=== PATIENT | male | born 1955 | race Caucasian/White ===

== ENCOUNTER 2018-07-15 00:24 | Inpatient (IN) | payer OTHER ==
[~2018-07-15] VITALS: Ht 172.7 cm; Wt 75.5 kg
[2018-07-15] VITALS (8 sets, daily range): BP systolic 109–139; BP diastolic 63–93
[2018-07-15] MEDS ORDERED: ONDANSETRON HCL INJ 2 MG/ML VIAL IV STA (00:34)
[2018-07-15] MEDS ORDERED: PANTOPRAZOLE 40 MG 10ML VIAL IV STA (00:34)
[2018-07-15] MEDS ORDERED: ASPIRIN 81 MG CHEW TAB PO ONE (00:45)
[2018-07-15] MEDS ORDERED: DIATRIZOATE MEGL/DIATRIZOA SOD 30 ML BTL PO ONE (00:49)
[2018-07-15 01:12] LABS: EOSINOPHILS # (AUTO) 0.1 (0.0-0.4); EOSINOPHILS % 1.2 % (0.0-6.0); HEMATOCRIT 29.6 % (38.2-49.6); HEMOGLOBIN 10.4 g/dL (14.0-18.0); LYMPHOCYTES # (AUTO) 0.5 (1.0-3.2); LYMPHOCYTES % 9.6 % (18.0-39.1); MEAN CORPUSCULAR HEMOGLOBIN 38.7 pg (28-32); MEAN CORPUSCULAR HGB CONC 35.1 g/dL (31-35); MONOCYTES # (AUTO) 0.3 (0.2-0.8); MONOCYTES % 5.1 % (4.4-11.3); NEUTROPHILS # (AUTO) 4.3 (2.1-6.9); NEUTROPHILS % 83.7 % (38.7-80.0); PLATELET COUNT 132 x10e3/uL (140-360); RED BLOOD COUNT 2.69 x10e6/uL (4.3-5.7); RED CELL DISTRIBUTION WIDTH 13.5 % (11.7-14.4)
[2018-07-15 01:28] LABS: CREATINE KINASE 67 IU/L (30-200)
[2018-07-15 01:31] LABS: ALANINE AMINOTRANSFERASE 16 IU/L (0-55); ALBUMIN/GLOBULIN RATIO 1.2 (0.8-2.0); ALKALINE PHOSPHATASE 57 IU/L (40-150); AMYLASE 77 U/L (25-125); ANION GAP 15.4 mmol/L (8-16); BLOOD UREA NITROGEN 13 mg/dL (7-26); BUN/CREATININE RATIO 17 (6-25); CALCIUM 9.4 mg/dL (8.4-10.2); CARBON DIOXIDE 19 mmol/L (22-29); CHLORIDE 102 mmol/L (98-107); CREATININE, SERUM 0.75 mg/dL (0.72-1.25); EST GLOMERULAR FILTRATION RATE > 60 ML/MIN (60-); GLUCOSE 142 mg/dL (74-118); LIPASE 17 U/L (8-78); POTASSIUM 3.4 mmol/L (3.5-5.1); SODIUM 133 mmol/L (136-145)
--- NOTE | 2018-07-15 02:37 | Diagnostic Imaging Report ---
EXAM: CT ABDOMEN AND PELVIS with IV CONTRAST DATE: 07/15/2018 12:34 AM Time stamp on Exam: 0202 hours INDICATION: Left-sided abdominal pain, vomiting COMPARISON: None TECHNIQUE: The abdomen and pelvis were scanned using a multidetector helical scanner. Coronal and sagittal reformations were obtained. Dose modulation, iterative reconstruction, and/or weight based adjustment of the mA/kV was utilized to reduce the radiation dose to as low as reasonably achievable. Routine protocol performed. IV Contrast: 100 cc Isovue-370 Oral Contrast: Gastrografin FINDINGS: LOWER THORAX: No consolidations LIVER: No masses BILIARY: The gallbladder is unremarkable. No ductal dilation. SPLEEN: No masses PANCREAS: The pancreas appears edematous. Fat stranding around the posterior superior aspect of the splenic body and tail ADRENALS: Mild bilateral adrenal gland hyperplasia. KIDNEYS: Symmetric perfusion. No enhancing masses. No hydronephrosis. Simple cyst measuring 2.8 cm superior pole of the right kidney. GI TRACT: No distention, wall thickening or evidence of obstruction. Colonic diverticulosis without CT findings of acute diverticulitis. Normal appendix. 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 PERITONEUM/RETROPERITONEUM: No free air or fluid LYMPH NODES: No lymphadenopathy REPRODUCTIVE ORGANS: Unremarkable BLADDER: Unremarkable SOFT TISSUES: Unremarkable BONES: No suspicious bone lesions. IMPRESSION: Left upper quadrant retroperitoneal fat stranding and prominent pancreas suggests acute pancreatitis. No abnormal fluid collections. Signed by: Dr. Renetta Landrum M.D. on 07/15/2018 2:33 AM
[2018-07-15] MEDS ORDERED: HYDROMORPHONE 1MG/1ML INJ IV STA (02:47)
[2018-07-15] MEDS ORDERED: SODIUM CHLORIDE 0.9% 1000ML 1,000 ML IV ONE (03:00)
[2018-07-15] MEDS ORDERED: HYDROMORPHONE 2MG/ML 2 MG/ML ML IV PRN ×3 (03:00→10:00)
[2018-07-15] MEDS ORDERED: HYDROMORPHONE 2MG/ML 2 MG/ML ML ONE (03:01)
[2018-07-15] MEDS ORDERED: FOLIC ACID1 MG PO (03:08)
[2018-07-15 04:05] LABS: CLARITY,URINE CLEAR (CLEAR); COLOR,URINE YELLOW (YELLOW); LEUKOCYTE ESTERASE ,URINE NEGATIVE (NEGATIVE); NITRITE,URINE NEGATIVE (NEGATIVE); PROTEIN,URINE DIPSTICK NEGATIVE (NEGATIVE)
[2018-07-15 04:06] LABS: BILIRUBIN,URINE NEGATIVE (NEGATIVE); KETONES,URINE 1+ (NEGATIVE); URINE UROBILINOGEN 0.2 mg/dL (0.2 - 1)
[2018-07-15 04:15] LABS: BACTERIA,URINE RARE /HPF; EPITHELIAL CELLS,URINE RARE /LPF; RBC,URINE 0-5 /HPF (0-5); WBC,URINE (MAN) 0-5 /HPF (0-5)
[2018-07-15] MEDS: SODIUM CHLORIDE 0.9% 1000ML 1,000 ML IV SCH ×4 (05:20→21:50)
[2018-07-15] MEDS: ONDANSETRON HCL INJ 2 MG/ML VIAL IV PRN ×4 (06:05→18:30)
[2018-07-15] MEDS ORDERED: SODIUM CHLORIDE 0.9% 50ML 50 ML ONE (06:20)
[2018-07-15] MEDS ORDERED: IOPAMIDOL 370 MG/ML 200 ML INFUS..BTL INJ ONE (06:21)
[2018-07-15] MEDS ORDERED: B-12500 MCG (07:59)
[2018-07-15] MEDS ORDERED: HYDRALAZINE HCL 20 MG/ML VIAL IV PRN (08:15)
[2018-07-15] MEDS ORDERED: ACETAMINOPHEN 325 MG TAB PO PRN (08:15)
[2018-07-15] MEDS: PANTOPRAZOLE 40 MG 10ML VIAL IV SCH (08:32)
[2018-07-15] MEDS: CYANOCOBALAMIN 1,000 MCG TAB PO SCH (08:32)
[2018-07-15] MEDS: FOLIC ACID 1 MG TAB PO SCH (08:32)
[2018-07-15] MEDS: HYDROCODONE/APAP 10MG-325MG TAB PO PRN ×3 (08:33→21:51)
[2018-07-15] MEDS ORDERED: NON-FORMULARY MEDICATION (Cyanocobalamin (Vitamin B-12) (B-12) 1,000 MCG) PO SCH (09:00)
[2018-07-15] MEDS: HYDROMORPHONE 2MG/ML 2 MG/ML ML IV PRN ×4 (10:07→22:30)
[2018-07-16] VITALS (7 sets, daily range): BP systolic 106–132; BP diastolic 64–83
[2018-07-16] MEDS: SODIUM CHLORIDE 0.9% 1000ML 1,000 ML IV SCH ×6 (01:39→21:34)
[2018-07-16] MEDS: HYDROMORPHONE 2MG/ML 2 MG/ML ML IV PRN ×5 (02:17→20:22)
[2018-07-16 05:20] LABS: BASOPHILS % 0.2 % (0.0-1.0); EOSINOPHILS # (AUTO) 0.1 (0.0-0.4); EOSINOPHILS % 2.4 % (0.0-6.0); HEMATOCRIT 27.1 % (38.2-49.6); HEMOGLOBIN 9.1 g/dL (14.0-18.0); LYMPHOCYTES # (AUTO) 1.3 (1.0-3.2); LYMPHOCYTES % 28.4 % (18.0-39.1); MEAN CORPUSCULAR HEMOGLOBIN 38.1 pg (28-32); MEAN CORPUSCULAR HGB CONC 33.6 g/dL (31-35); MEAN CORPUSCULAR VOLUME 113.4 fL (81-99); MONOCYTES # (AUTO) 0.4 (0.2-0.8); MONOCYTES % 8.1 % (4.4-11.3); NEUTROPHILS # (AUTO) 2.8 (2.1-6.9); NEUTROPHILS % 60.7 % (38.7-80.0); PLATELET COUNT 78 x10e3/uL (140-360); RED BLOOD COUNT 2.39 x10e6/uL (4.3-5.7); RED CELL DISTRIBUTION WIDTH 14.1 % (11.7-14.4)
[2018-07-16 05:40] LABS: ALANINE AMINOTRANSFERASE 12 IU/L (0-55); ALBUMIN 3.6 g/dL (3.5-5.0); ALBUMIN/GLOBULIN RATIO 1.3 (0.8-2.0); ALKALINE PHOSPHATASE 51 IU/L (40-150); AMYLASE 48 U/L (25-125); ANION GAP 12.4 mmol/L (8-16); BLOOD UREA NITROGEN 8 mg/dL (7-26); BUN/CREATININE RATIO 11 (6-25); CARBON DIOXIDE 25 mmol/L (22-29); CHLORIDE 104 mmol/L (98-107); CREATININE, SERUM 0.71 mg/dL (0.72-1.25); EST GLOMERULAR FILTRATION RATE > 60 ML/MIN (60-); GLUCOSE 104 mg/dL (74-118); LIPASE 7 U/L (8-78); POTASSIUM 4.4 mmol/L (3.5-5.1); SODIUM 137 mmol/L (136-145)
[2018-07-16] MEDS: FOLIC ACID 1 MG TAB PO SCH (09:00)
[2018-07-16] MEDS: CYANOCOBALAMIN 1,000 MCG TAB PO SCH (09:00)
[2018-07-16] MEDS: PANTOPRAZOLE 40 MG 10ML VIAL IV SCH (09:24)
[2018-07-16] MEDS: HYDROCODONE/APAP 10MG-325MG TAB PO PRN ×4 (09:25→21:34)
[2018-07-16] MEDS: ONDANSETRON HCL INJ 2 MG/ML VIAL IV PRN (16:18)
[2018-07-17] VITALS (7 sets, daily range): BP systolic 99–169; BP diastolic 69–90
[2018-07-17] MEDS: HYDROMORPHONE 2MG/ML 2 MG/ML ML IV PRN ×5 (00:46→21:14)
[2018-07-17] MEDS: SODIUM CHLORIDE 0.9% 1000ML 1,000 ML IV SCH ×6 (01:44→19:50)
[2018-07-17] MEDS: HYDROCODONE/APAP 10MG-325MG TAB PO PRN (02:15)
[2018-07-17] MEDS ORDERED: CITRATE OF MAGNESIA 300ML BOTTLE PO ONE (04:15)
[2018-07-17 05:13] LABS: EOSINOPHILS # (AUTO) 0.1 (0.0-0.4); EOSINOPHILS % 2.1 % (0.0-6.0); HEMATOCRIT 26.1 % (38.2-49.6); HEMOGLOBIN 8.8 g/dL (14.0-18.0); MEAN CORPUSCULAR HEMOGLOBIN 38.8 pg (28-32); MEAN CORPUSCULAR HGB CONC 33.7 g/dL (31-35); MONOCYTES # (AUTO) 0.3 (0.2-0.8); MONOCYTES % 8.4 % (4.4-11.3); NEUTROPHILS % 60.2 % (38.7-80.0); PLATELET COUNT 58 x10e3/uL (140-360); RED BLOOD COUNT 2.27 x10e6/uL (4.3-5.7); RED CELL DISTRIBUTION WIDTH 13.7 % (11.7-14.4)
[2018-07-17 05:32] LABS: ANION GAP 14.6 mmol/L (8-16); BLOOD UREA NITROGEN 6 mg/dL (7-26); BUN/CREATININE RATIO 9 (6-25); CALCIUM 8.9 mg/dL (8.4-10.2); CARBON DIOXIDE 21 mmol/L (22-29); CHLORIDE 107 mmol/L (98-107); CREATININE, SERUM 0.65 mg/dL (0.72-1.25); EST GLOMERULAR FILTRATION RATE > 60 ML/MIN (60-); GLUCOSE 93 mg/dL (74-118); MAGNESIUM 1.7 MG/DL (1.3-2.1); PHOSPHORUS 2.7 MG/DL (2.3-4.7); POTASSIUM 3.6 mmol/L (3.5-5.1); SODIUM 139 mmol/L (136-145)
[2018-07-17] MEDS: PANTOPRAZOLE 40 MG 10ML VIAL IV SCH (08:40)
[2018-07-17] MEDS: CYANOCOBALAMIN 1,000 MCG TAB PO SCH (09:00)
[2018-07-17] MEDS: FOLIC ACID 1 MG TAB PO SCH (09:00)
[2018-07-18] VITALS (7 sets, daily range): BP systolic 105–175; BP diastolic 59–88
[2018-07-18] MEDS ORDERED: MAGNESIUM HYDROXIDE 30 ML UDC PO ONE (00:30)
[2018-07-18] MEDS: MORPHINE SULFATE INJ 4 MG/ML INJ IV PRN ×5 (01:45→19:50)
[2018-07-18] MEDS: SODIUM CHLORIDE 0.9% 1000ML 1,000 ML IV SCH ×3 (02:23→18:35)
[2018-07-18] MEDS: HYDROCODONE/APAP 10MG-325MG TAB PO PRN ×4 (04:46→21:48)
[2018-07-18 05:07] LABS: EOSINOPHILS # (AUTO) 0.1 (0.0-0.4); EOSINOPHILS % 4.5 % (0.0-6.0); HEMATOCRIT 25.6 % (38.2-49.6); HEMOGLOBIN 8.7 g/dL (14.0-18.0); LYMPHOCYTES % 33.6 % (18.0-39.1); MEAN CORPUSCULAR HEMOGLOBIN 38.7 pg (28-32); MEAN CORPUSCULAR VOLUME 113.8 fL (81-99); MONOCYTES # (AUTO) 0.3 (0.2-0.8); MONOCYTES % 10.5 % (4.4-11.3); NEUTROPHILS # (AUTO) 1.5 (2.1-6.9); NEUTROPHILS % 51.1 % (38.7-80.0); RED BLOOD COUNT 2.25 x10e6/uL (4.3-5.7); RED CELL DISTRIBUTION WIDTH 13.5 % (11.7-14.4)
[2018-07-18 05:12] LABS: PLATELET COUNT 43 x10e3/uL (140-360)
[2018-07-18 05:29] LABS: ALANINE AMINOTRANSFERASE 17 IU/L (0-55); ALBUMIN 3.4 g/dL (3.5-5.0); ALBUMIN/GLOBULIN RATIO 1.3 (0.8-2.0); ALKALINE PHOSPHATASE 48 IU/L (40-150); ANION GAP 17.3 mmol/L (8-16); BLOOD UREA NITROGEN 9 mg/dL (7-26); BUN/CREATININE RATIO 15 (6-25); CALCIUM 8.6 mg/dL (8.4-10.2); CARBON DIOXIDE 19 mmol/L (22-29); CHLORIDE 106 mmol/L (98-107); CREATININE, SERUM 0.62 mg/dL (0.72-1.25); EST GLOMERULAR FILTRATION RATE > 60 ML/MIN (60-); GLUCOSE 70 mg/dL (74-118); POTASSIUM 3.3 mmol/L (3.5-5.1); SODIUM 139 mmol/L (136-145)
[2018-07-18 05:30] LABS: LIPASE < 4 U/L (8-78)
[2018-07-18] MEDS: CHLORDIAZEPOXIDE/CLIDINIUM 1 CAP PO SCH ×5 (05:50→23:54)
[2018-07-18] MEDS: CYANOCOBALAMIN 1,000 MCG TAB PO SCH (09:00)
[2018-07-18] MEDS: FOLIC ACID 1 MG TAB PO SCH (09:00)
[2018-07-18] MEDS: PANTOPRAZOLE 40 MG 10ML VIAL IV SCH (10:00)
[2018-07-18] MEDS ORDERED: MAGNESIUM SULFATE 2GM/50ML 50 ML IV ONE (20:45)
[2018-07-18] MEDS ORDERED: POTASSIUM CHLORIDE 20MEQ/100ML 100 ML IV ONE (20:45)
[2018-07-19] VITALS (7 sets, daily range): BP systolic 108–156; BP diastolic 75–91
[2018-07-19] MEDS ORDERED: POTASSIUM CHLORIDE 20MEQ/100ML 100 ML IV ONE (00:30)
[2018-07-19] MEDS: SODIUM CHLORIDE 0.9% 1000ML 1,000 ML IV SCH ×3 (04:47→17:05)
[2018-07-19] MEDS: MORPHINE SULFATE INJ 4 MG/ML INJ IV PRN ×4 (04:47→20:47)
[2018-07-19 05:11] LABS: BASOPHILS % 0.3 % (0.0-1.0); EOSINOPHILS # (AUTO) 0.2 (0.0-0.4); EOSINOPHILS % 5.2 % (0.0-6.0); HEMATOCRIT 25.5 % (38.2-49.6); LYMPHOCYTES # (AUTO) 1.1 (1.0-3.2); LYMPHOCYTES % 34.5 % (18.0-39.1); MEAN CORPUSCULAR HGB CONC 35.3 g/dL (31-35); MEAN CORPUSCULAR VOLUME 110.4 fL (81-99); MONOCYTES # (AUTO) 0.3 (0.2-0.8); MONOCYTES % 8.5 % (4.4-11.3); NEUTROPHILS # (AUTO) 1.6 (2.1-6.9); NEUTROPHILS % 51.2 % (38.7-80.0); PLATELET COUNT 65 x10e3/uL (140-360); RED BLOOD COUNT 2.31 x10e6/uL (4.3-5.7); RED CELL DISTRIBUTION WIDTH 13.5 % (11.7-14.4)
[2018-07-19] MEDS: CHLORDIAZEPOXIDE/CLIDINIUM 1 CAP PO SCH ×4 (05:21→23:20)
[2018-07-19 05:41] LABS: ANION GAP 15.4 mmol/L (8-16); BLOOD UREA NITROGEN 5 mg/dL (7-26); BUN/CREATININE RATIO 7 (6-25); CALCIUM 8.8 mg/dL (8.4-10.2); CARBON DIOXIDE 22 mmol/L (22-29); CHLORIDE 106 mmol/L (98-107); CREATININE, SERUM 0.67 mg/dL (0.72-1.25); EST GLOMERULAR FILTRATION RATE > 60 ML/MIN (60-); GLUCOSE 99 mg/dL (74-118); MAGNESIUM 2.3 MG/DL (1.3-2.1); POTASSIUM 3.4 mmol/L (3.5-5.1); SODIUM 140 mmol/L (136-145)
[2018-07-19] MEDS: CYANOCOBALAMIN 1,000 MCG TAB PO SCH (09:14)
[2018-07-19] MEDS: FOLIC ACID 1 MG TAB PO SCH (09:14)
[2018-07-20] VITALS: BP 137/96
[2018-07-20] MEDS: MORPHINE SULFATE INJ 4 MG/ML INJ IV PRN ×2 (02:40→09:16)
[2018-07-20 04:00] VITALS: BP 116/81
[2018-07-20] MEDS: CHLORDIAZEPOXIDE/CLIDINIUM 1 CAP PO SCH (05:41)
[2018-07-20 08:00] VITALS: BP 105/64
[2018-07-20] MEDS: FOLIC ACID 1 MG TAB PO SCH (08:52)
[2018-07-20] MEDS: CYANOCOBALAMIN 1,000 MCG TAB PO SCH (08:52)
[2018-07-20] MEDS ORDERED: ZOFRAN ODT4 MG PO (10:07)
[2018-07-20] MEDS ORDERED: TYLENOL # 31 EA PO (10:07)
[2018-07-20 12:00] VITALS: BP 129/95
--- OUTSIDE RECORDS SUMMARY | 2018-07-20 12:51 | XMS REPORT ---
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 Allergies, Adverse Reactions, Alerts This patient has no known allergies or adverse reactions. Medications This patient has no known medications. Encounters Start Date/Time End Date/Time Encounter Type Admission Type Attending [facility] [place] Facility Care Department Encounter ID 2018-10-13 00:00:00 2018-10-13 00:00:00 Outpatient [facility] [id number] 2018-10-13 00:00:00 2018-10-13 00:00:00 Outpatient [facility] [id number] 2018-07-14 13:05:00 2018-07-14 13:05:00 Outpatient [facility] [id number] 2018-07-14 11:23:10 2018-07-14 11:23:10 Outpatient [facility] [id number] 2018-06-25 09:44:44 2018-06-25 09:44:44 Outpatient [facility] [id number] 2018-06-08 00:00:00 2018-06-08 00:00:00 Outpatient [facility] [id number] 2018-05-28 00:00:00 2018-05-28 00:00:00 Outpatient [facility] [id number] 2018-05-25 00:00:00 2018-05-25 00:00:00 Outpatient [facility] [id number] 2018-05-17 00:00:00 2018-05-17 00:00:00 Outpatient [facility] [id number] 2018-05-10 00:00:00 2018-05-10 00:00:00 Outpatient [facility] [id number] 2018-04-26 08:23:20 2018-04-26 08:23:20 Outpatient [facility] [id number] 2018-04-22 00:00:00 2018-04-22 00:00:00 Outpatient [facility] [id number] 2018-04-14 13:29:51 2018-04-14 13:29:51 Outpatient [facility] [id number] 2018-04-14 11:12:24 2018-04-14 11:12:24 Outpatient [facility] [id number] 2017-10-28 00:00:00 2017-10-28 00:00:00 Outpatient [facility] [id number] 2017-10-28 00:00:00 2017-10-28 00:00:00 Outpatient [facility] [id number] 2017-10-02 00:00:00 2017-10-02 00:00:00 Outpatient [facility] [id number] 2017-08-03 00:00:00 2017-08-03 00:00:00 Outpatient [facility] [id number] 2017-07-29 14:29:59 2017-07-29 14:29:59 Outpatient [facility] [id number] 2017-07-29 13:37:40 2017-07-29 13:37:40 Outpatient [facility] [id number] 2017-07-20 00:00:00 2017-07-20 00:00:00 Outpatient [facility] [id number] 2017-07-20 00:00:00 2017-07-20 00:00:00 Outpatient [facility] [id number] 2017-07-01 00:00:00 2017-07-01 00:00:00 Outpatient [facility] [id number] 2017-06-30 13:47:16 2017-06-30 13:47:16 Outpatient [facility] [id number] 2017-06-17 00:00:00 2017-06-17 00:00:00 Outpatient [facility] [id number] 2017-03-30 00:00:00 2017-03-30 00:00:00 Outpatient [facility] [id number] 2017-03-30 00:00:00 2017-03-30 00:00:00 Outpatient [facility] [id number] 2017-02-20 12:42:19 2017-02-20 12:42:19 Outpatient [facility] [id number] Results Test Description Test Time Test Comments Text Results Atomic Results Result Comments CT ABDOMEN/PELVIS W 2018-07-15 02:29:00 [place] [address] Patient Name: JOSE HARDIN MR #: [id number] : 1955 [facility] 63[id number] Req #: [id number] Adm Physician: Ordered by: EZE WILCOX MD Report #: [id number] Location: ER Room/Bed: Procedure: [id number] CT/CT ABDOMEN/PELVIS W Exam Date: 07/15/18 Exam Time: 0205 REPORT STATUS: Signed EXAM: CT ABDOMEN AND PELVIS with IV CONTRAST DATE: 07/15/2018 12:34 AM Time stamp on Exam: 0202 hours INDICATION: Left-sided abdominal pain, vomiting COMPARISON: None TECHNIQUE: The abdomen and pelvis were scanned using a multidetector helical scanner. Coronal and sagittal reformations were obtained. Dose modulation, iterative reconstruction, and/or weight based adjustment of the mA/kV was utilized to reduce the radiation dose to as low as reasonably achievable. Routine protocol performed. IV Contrast: 100 cc Isovue-370 Oral Contrast: Gastrografin FINDINGS: LOWER THORAX: No consolidations LIVER: No masses BILIARY: The gallbladder is unremarkable. No ductal dilation. SPLEEN: No masses PANCREAS: The pancreas appears edematous. Fat stranding around the posterior superior aspect of the splenic body and tail ADRENALS: Mild bilateral adrenal gland hyperplasia. KIDNEYS: Symmetric perfusion. No enhancing masses. No hydronephrosis. Simple cyst measuring 2.8 cm superior pole of the right kidney. GI TRACT: No distention, wall thickening or evidence of obstruction. Colonic diverticulosis without CT findings of acute diverticulitis. Normal appendix. 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 PERITONEUM/RETROPERITONEUM: No free air or fluid LYMPH NODES: No lymphadenopathy REPRODUCTIVE ORGANS: Unremarkable BLADDER: Unremarkable SOFT TISSUES: Unremarkable BONES: No suspicious bone lesions. IMPRESSION: Left upper quadrant retroperitoneal fat stranding and prominent pancreas suggests acute pancreatitis. No abnormal fluid collections. Signed by: Dr. Judy Ortez M.D. on 07/15/2018 2:33 AM Dictated By: JUDY ORTEZ MD 2 Transcribed By: ALIZE on 07/15/18232 COPY TO: EZE WILCOX MD
--- OUTSIDE RECORDS SUMMARY | 2018-07-20 12:51 | XMS REPORT | Clinical Summary ---
Author [facility] Address Unknown Phone Unavailable Care Team Providers Care Returned Goods Sorter Name Role Phone Pascale Watson NP PCP Allergies No Known Allergies Current Medications Prescription Sig. Disp. Refills Start End Date Status Date gabapentin (NEURONTIN) Take 1 capsule by mouth 3 90 capsule 2 11/19/19 Active 300 mg times daily. 18 capsuleIndications: Lumbar radiculopathy folic acid (FOLVITE) 1 mg Take 1 tablet by mouth 90 tablet 3 11/19/19 Active tabletIndications: daily. 18 Macrocytic anemia cyanocobalamin, vitamin Take 1 tablet by mouth 90 tablet 1 11/19/19 Active B-12, 1,000 mcg daily. 18 tabletIndications: B12 deficiency polyethylene glycol Add lukewarm drinking 4000 mL 0 12/12/19 Active (GOLYTELY) 236-22.74-6.74 water to the fill george (4 18 -5.86 gram oral liters) and shake. Drink solutionIndications: as directed by your Anemia, unspecified type doctor.. lidocaine (LIDODERM) 5 % Apply 1 Patch to skin as 30 Patch 1 06/25/20 Active patchIndications: Chronic directed daily Leave 18 midline low back pain patch(es) on for up to 12 without sciatica, Lumbar hours, then 12 hours radiculopathy off.. acetaminophen-codeine Take 1 tablet by mouth 2 60 tablet 2 06/25/20 Active (TYLENOL/CODEINE #3) times daily as needed for 18 300-30 mg per Pain. tabletIndications: Lumbar radiculopathy, Chronic midline low back pain without sciatica cyanocobalamin, vitamin Take 1 tablet by mouth 90 tablet 1 03/30/20 11/19/19 Discontin B-12, 1,000 mcg daily. 17 18 ued tabletIndications: B12 deficiency chlorhexidine (PERIDEX) Swish with 1/2 oz of 473 mL 0 05/09/20 11/19/19 Discontin 0.12 % mouth solution in mouth for 30 17 18 ued washIndications: seconds and spit. Use Dentalgia twice daily.. folic acid (FOLVITE) 1 mg Take 1 tablet by mouth 90 tablet 3 05/26/20 11/19/19 Discontin tabletIndications: daily. 17 18 ued Macrocytic anemia gabapentin (NEURONTIN) Take 1 capsule at bedtime 90 capsule 2 06/10/20 11/19/19 Discontin 300 mg everyday for 1 week, then 17 18 ued capsuleIndications: increase dose 1 capsule Lumbar radiculopathy twice daily for week 2, then increase dose to 1 capsule 3 times daily.. acetaminophen-codeine Take 1 tablet by mouth 2 60 tablet 0 07/06/20 08/03/20 Discontin (TYLENOL/CODEINE #3) times daily as needed for 17 17 ued 300-30 mg per Pain. tabletIndications: Lumbar radiculopathy acetaminophen-codeine Take 1 tablet by mouth 2 60 tablet 0 08/06/20 09/07/20 Discontin (TYLENOL/CODEINE #3) times daily as needed for 17 17 ued 300-30 mg per Pain. tabletIndications: Lumbar radiculopathy acetaminophen-codeine Take 1 tablet by mouth 2 60 tablet 0 09/11/20 10/13/19 Discontin (TYLENOL/CODEINE #3) times daily as needed for 17 18 ued 300-30 mg per Pain. tabletIndications: Lumbar radiculopathy acetaminophen-codeine Take 1 tablet by mouth 2 60 tablet 0 10/15/19 11/19/19 Discontin (TYLENOL/CODEINE #3) times daily as needed for 18 18 ued 300-30 mg per Pain. tabletIndications: Lumbar radiculopathy chlorhexidine (PERIDEX) Swish with 1/2 oz of 473 mL 0 11/19/19 12/10/19 0.12 % mouth solution in mouth for 30 18 18 washIndications: seconds and spit. Use Dentalgia twice daily.. acetaminophen-codeine Take 1 tablet by mouth 2 60 tablet 0 11/19/19 12/09/19 Discontin (TYLENOL/CODEINE #3) times daily as needed for 18 18 ued 300-30 mg per Pain. tabletIndications: Lumbar radiculopathy acetaminophen-codeine Take 1 tablet by mouth 2 60 tablet 0 12/09/19 01/07/20 Discontin (TYLENOL/CODEINE #3) times daily as needed for 18 18 ued 300-30 mg per Pain. tabletIndications: Lumbar radiculopathy acetaminophen-codeine Take 1 tablet by mouth 2 60 tablet 0 01/14/20 02/20/20 Discontin (TYLENOL/CODEINE #3) times daily as needed for 18 18 ued 300-30 mg per Pain. tabletIndications: Lumbar radiculopathy acetaminophen-codeine Take 1 tablet by mouth 2 60 tablet 0 02/20/20 03/22/20 Discontin (TYLENOL/CODEINE #3) times daily as needed for 18 18 ued 300-30 mg per Pain. tabletIndications: Lumbar radiculopathy acetaminophen-codeine Take 1 tablet by mouth 2 60 tablet 0 03/22/20 03/22/20 Discontin (TYLENOL/CODEINE #3) times daily as needed for 18 18 ued 300-30 mg per Pain. tabletIndications: Lumbar radiculopathy acetaminophen-codeine Take 1 tablet by mouth 2 60 tablet 0 03/22/20 04/22/20 Discontin (TYLENOL/CODEINE #3) times daily as needed for 18 18 ued 300-30 mg per Pain. tabletIndications: Lumbar radiculopathy lidocaine (LIDODERM) 5 % Apply 1 Patch to skin as 30 Patch 0 04/14/20 04/22/20 Discontin patchIndications: Chronic directed daily Leave 18 18 ued midline low back pain patch(es) on for up to 12 without sciatica hours, then 12 hours off.. lidocaine (LIDODERM) 5 % Apply 1 Patch to skin as 30 Patch 0 04/24/20 06/25/20 Discontin patchIndications: Chronic directed daily Leave 18 18 ued midline low back pain patch(es) on for up to 12 without sciatica hours, then 12 hours off.. acetaminophen-codeine Take 1 tablet by mouth 2 60 tablet 0 04/26/20 05/28/20 Discontin (TYLENOL/CODEINE #3) times daily as needed for 18 18 ued 300-30 mg per Pain. tabletIndications: Lumbar radiculopathy acetaminophen-codeine Take 1 tablet by mouth 2 60 tablet 0 05/28/20 06/25/20 Discontin (TYLENOL/CODEINE #3) times daily as needed for 18 18 ued 300-30 mg per Pain. tabletIndications: Lumbar radiculopathy Active Problems Problem Noted Date Pancytopenia mild 06/25/2018 B12 deficiency 11/19/2017 Macrocytic anemia 07/01/2016 Thrombocytopenia 07/01/2016 Lumbar radiculopathy 07/22/2013 Encounters Date Type Specialty Care Team Description 07/14/2018 Office Visit Hematology Richard Grey Pancytopenia (Primary Dx) Fellow() Holly Syed MD 07/05/2018 Pharmacy Visit 07/01/2018 Pharmacy Visit 06/28/2018 Pharmacy Visit 06/28/2018 Pharmacy Visit 06/25/2018 Office Visit Family Practice Pascale Watson NP Lumbar radiculopathy (Primary Dx); Dietary counseling for Above / Below Normal BMI; Exercise counseling for Above Normal BMI Only!; Chronic midline low back pain without sciatica; Systolic murmur; Pancytopenia mild 06/25/2018 Pharmacy Visit 06/25/2018 Refill Family Practice Pascale Watson NP Chronic midline low back pain without sciatica; Lumbar radiculopathy 06/25/2018 Pharmacy Visit 05/31/2018 Pharmacy Visit 05/28/2018 Pharmacy Visit 05/28/2018 Orders Only Family Practice Pascale Watson NP Lumbar radiculopathy 05/27/2018 Pharmacy Visit 05/25/2018 Refill Family Practice Aquilino Minaya MD Lumbar radiculopathy 04/28/2018 Pharmacy Visit 04/26/2018 Lab Appointment Lab Pascale Watson NP Thrombocytopenia 04/26/2018 Pharmacy Visit 04/22/2018 Refill Family Practice Aquilino Minaya MD Lumbar radiculopathy 04/22/2018 Refill Hematology George Bronson MD Chronic midline low back pain without sciatica 04/22/2018 Pharmacy Visit 04/15/2018 Pharmacy Visit 04/14/2018 Office Visit Hematology Holly Syed MD Chronic midline low back pain without sciatica (Primary Dx) 03/24/2018 Pharmacy Visit 03/22/2018 Pharmacy Visit 03/22/2018 Orders Only [facility] Practice Pascale Watson NP Lumbar radiculopathy 03/14/2018 Refill [facility] Aquilino Dudley MD Lumbar radiculopathy 02/23/2018 Pharmacy Visit 02/22/2018 Office Visit [facility] Pascale Watson NP Lumbar radiculopathy (Primary Dx); Thrombocytopenia 02/22/2018 Pharmacy Visit 02/19/2018 Pharmacy Visit 02/19/2018 Orders Only [facility] Pascale Kerns NP Lumbar radiculopathy 02/17/2018 Office Visit Neurosurgery Brian Porter MD Lumbar radiculopathy Allison Riddle NP (Primary Dx) 02/15/2018 Pharmacy Visit 02/11/2018 Refill [facility] Aquilino Dudley MD Lumbar radiculopathy 01/27/2018 [facility] Maria M Garcia NP Hematochezia (Primary Dx) Encounter Cari Telles MD 01/26/2018 Nurse Triage Wendy Marcial RN 01/22/2018 Pharmacy Visit 01/20/2018 Pharmacy Visit 01/20/2018 Telephone Magdalena White Appointment Related Questions (colonoscopy) 01/15/2018 Pharmacy Visit 01/13/2018 Pharmacy Visit 01/06/2018 Refill [facility] Aquilino Dudley MD Lumbar radiculopathy 12/28/2017 Pharmacy Visit 12/14/2017 Telephone Social Work Romario Mac RN Pre-clinic Chart Review; Transportation ([place] Referral) 12/11/2017 Office Visit Gastroenterology Maria M Garcia NP Anemia, unspecified type (Primary Dx); Thrombocytopenia 12/11/2017 Pharmacy Visit 12/08/2017 Office Visit Family Pascale Kerns NP Encounter to discuss test results (Primary Dx); Lumbar radiculopathy; Thrombocytopenia; Assistance needed with transportation 12/08/2017 Clinical Case Social Work Romario Mac RN Mgt 12/08/2017 Pharmacy Visit 12/02/2017 Pharmacy Visit 12/01/2017 Pharmacy Visit 11/22/2017 Hospital Radiology Pascale Watson NP Encounter 11/19/2017 Office Visit Family Pascale Kerns NP Lumbar radiculopathy (Primary Dx); Dentalgia; Flu vaccine need; Thrombocytopenia; Macrocytic anemia; B12 deficiency 11/19/2017 Procedure Pass Family Practice 11/19/2017 Pharmacy Visit 11/18/2017 Pharmacy Visit 11/17/2017 Pharmacy Visit 11/12/2017 Refill [facility] Aquilino Minaya MD Lumbar radiculopathy 10/28/2017 Office Visit Hematology George Bronson MD Thrombocytopenia (Primary [place], Tejo N, Dx); Fellow() Anemia due to other cause, not classified 10/26/2017 Pharmacy Visit 10/15/2017 Pharmacy Visit 10/13/2017 Refill [facility] Aquilino Minaya MD Lumbar radiculopathy 10/01/2017 Office Visit Oral Surgery LeanneAlicia cabrala A, DDS Caries (Primary Dx) Clarence Clifton, DDS 10/01/2017 Office Visit Oral Surgery Prosper Perdomo, DDS Caries 09/16/2017 Pharmacy Visit 09/15/2017 Pharmacy Visit 09/11/2017 Pharmacy Visit 09/11/2017 Telephone Clarita Bradford LVN Medication Refill 09/10/2017 Pharmacy Visit 09/07/2017 Refill [facility] Aquilino Minaya MD Lumbar radiculopathy 08/12/2017 Pharmacy Visit 08/11/2017 Pharmacy Visit 08/06/2017 Pharmacy Visit 08/03/2017 Refill [facility] Aquilino Minaya MD Lumbar radiculopathy 07/29/2017 Office Visit Hematology George Bronson MD Thrombocytopenia (Primary [place], Tejo N, Dx) Fellow() 07/27/2017 Orders Only Hematology Holly Syed MD Thrombocytopenia after 07/14/2017 Immunizations Name Dates Previously Given Next Due Influenza Vaccine, 11/19/2017 Seasonal, Injectable Family History Medical History Relation Name Comments Hypertension Father Heart Maternal Grandmother Stroke Maternal Grandmother Arthritis Mother Cancer Mother breast cancer Hypertension Paternal Grandmother Relation Name Status Comments Brother Alive Father Alive Maternal Grandmother Mother Paternal Grandmother Sister Alive Sister Social History Tobacco Use Types Packs/Day Years Used Date Current Every Day Smoker Cigarettes 0.3 40 Smokeless Tobacco: Current User Tobacco Cessation: Ready to Quit: No; Counseling Given: No Alcohol Use Drinks/Week oz/Week Comments Yes 6 Cans of 3.0 socially beer Sex Assigned at Date Recorded Not on file Last Filed Vital Signs Vital Sign Reading Time Taken Blood Pressure 116/60 07/14/2018 1:05 PM CDT Pulse 63 07/14/2018 1:05 PM CDT Temperature 36.6 C (97.8 F) 07/14/2018 1:05 PM CDT Respiratory Rate 18 07/14/2018 1:05 PM CDT Oxygen Saturation 98% 01/27/2018 2:45 PM CDT Inhaled Oxygen - - Concentration Weight 72 kg (158 lb 11.2 oz) 07/14/2018 1:05 PM CDT Height 167.6 cm (5' 6") 07/14/2018 1:05 PM CDT Body Mass Index 25.61 07/14/2018 1:05 PM CDT Plan of Treatment Date Type Specialty Care Team Description 07/23/2018 Office Visit Neurosurgery Brian Porter MD [address] [place] [address] 4th [place] [address] [phone] 10/13/2018 Lab Appointment Lab Holly Syed MD [address] [place] [address] [address] [place] [address] [phone] 10/13/2018 Office Visit Hematology Magdalena Prather, Fellow(MD) [address] [id number] Health Maintenance Due Date Last Done Comments Colonoscopy 10yr 01/28/2028 01/27/2018 Procedures Procedure Name Priority Date/Time Associated Diagnosis Comments CBC/DIFF Routine 07/14/2018 Chronic midline low back Results for this 11:23 AM CDT pain without sciatica procedure are in the results section. 12 LEAD EKG STAT 06/25/2018 Systolic murmur Results for this 9:48 AM CDT procedure are in the results section. BASIC METABOLIC PANEL Routine 04/26/2018 Thrombocytopenia Results for this 8:19 AM CDT procedure are in the results section. HEMOGLOBIN A1C Routine 04/26/2018 Thrombocytopenia Results for this 8:19 AM CDT procedure are in the results section. LIVER PROFILE Routine 04/26/2018 Thrombocytopenia Results for this 8:18 AM CDT procedure are in the results section. LIPID PROFILE Routine 04/26/2018 Thrombocytopenia Results for this 8:18 AM CDT procedure are in the results section. SAVE SMEAR/ NOT FOR PATH Routine 04/14/2018 Thrombocytopenia REVIEW 11:13 AM CDT RETIC COUNT Routine 04/14/2018 Thrombocytopenia Results for this 11:13 AM CDT procedure are in the results section. PHOSPHORUS STAT 04/14/2018 Thrombocytopenia Results for this 11:13 AM CDT procedure are in the results section. MAGNESIUM STAT 04/14/2018 Thrombocytopenia Results for this 11:13 AM CDT procedure are in the results section. CBC/DIFF STAT 04/14/2018 Thrombocytopenia Results for this 11:13 AM CDT procedure are in the results section. COMPREHENSIVE METABOLIC STAT 04/14/2018 Thrombocytopenia Results for this PANEL(DBIL NOT INCLUDED) 11:13 AM CDT procedure are in the results section. COLONOSCOPY Routine 01/27/2018 Anemia, unspecified type Results for this 12:00 AM CDT procedure are in the results section. MRI LUMBAR SPINE W/O Routine 11/22/2017 Lumbar radiculopathy Results for this CONTRAST 2:51 PM [employer] procedure are in the results section. SAVE SMEAR/ NOT FOR PATH Routine 10/28/2017 Thrombocytopenia REVIEW 12:24 PM [employer] RETIC COUNT Routine 10/28/2017 Thrombocytopenia Results for this 12:24 PM [employer] procedure are in the results section. PHOSPHORUS STAT 10/28/2017 Thrombocytopenia Results for this 12:24 PM [employer] procedure are in the results section. MAGNESIUM STAT 10/28/2017 Thrombocytopenia Results for this 12:24 PM [employer] procedure are in the results section. COMPREHENSIVE METABOLIC STAT 10/28/2017 Thrombocytopenia Results for this PANEL(DBIL NOT INCLUDED) 12:24 PM [employer] procedure are in the results section. CBC/DIFF STAT 10/28/2017 Thrombocytopenia Results for this 12:24 PM [employer] procedure are in the results section. CBC/DIFF STAT 07/29/2017 Thrombocytopenia Results for this 1:59 PM CDT procedure are in the results section. after 07/14/2017 Results * CBC/DIFF (07/14/2018 11:23 AM) Only the most recent of 4 results within the time period is included. WBC 3.8 (L) 4.5 - 12.0 K/uL [facility] 2 RBC 2.77 (L) 4.60 - 6.20 M/uL [facility] 2 Hemoglobin 10.6 (L) 14.0 - 18.0 g/dL [facility] 2 Hematocrit 31.4 (L) 40.0 - 54.0 % [facility] 2 MCV 113 (H) 82 - 92 fL [facility] 2 MCH 38.3 (H) 27.0 - 31.0 pg [facility] 2 MCHC 33.8 32.0 - 36.0 g/dL [facility] 2 RDW 52.7 (H) 35.1 - 43.9 fL [facility] 2 Platelet 108 (L) 150 - 400 K/uL [place] [address] Neutrophil 66.0 34.0 - 67.9 % [place] [address] Lymphocyte 23.8 21.8 - 50.0 % [facility] 2 Monocyte 7.3 5.3 - 12.0 % [facility] 2 Eosinophil 2.9 0.8 - 5.0 % [place] [address] Basophil 0.0 (L) 0.2 - 1.2 % [place] [address] Neutrophil, Abs 2.53 1.78 - 5.36 K/uL [place] [address] Lymphocyte, Abs 0.91 (L) 1.32 - 3.57 K/uL [place] [address] Monocyte, Abs 0.28 (L) 0.30 - 0.82 K/uL [place] [address] Eosinophil, Abs 0.11 0.04 - 0.54 K/uL [place] [address] Basophil, Abs 0.00 (L) 0.01 - 0.08 K/uL [place] [address] Specimen Blood Performing Organization Address City/State/Zipcode Phone Number EUSEBIO [facility] 2 * 12 LEAD EKG (06/25/2018 9:48 AM) 12 LEAD EKG FOR [facility] Test Date:2018-06-25 Pat Name: JOSE Rich artment: Room: Gender: Service Liaison Representative: :[id number] Requested By: Order Number: Ernestine whalen MD: Rajiv Hong M.D. Measurements Intervals [place] Rate: 62 P:66 PA: 135 QRS: 66 QRSD: 89 T:71 QT: 411 QTc:418 Interpretive Statements SINUS RHYTHM Electronically Signed On 06-25-18 14:39:30 CDT by Rajiv Hong M.D. Performing Organization Address City/State/Zipcode Phone Number [facility] * HEMOGLOBIN A1C (04/26/2018 8:19 AM) Hemoglobin A1c 5.7 4.3 - 6.1 % [facility] Est Average Gluc 116.9 mg/dL [facility] Specimen Blood Performing Organization Address [facility] Phone Number [facility] * BASIC METABOLIC PANEL (04/26/2018 8:19 AM) CO2 28 21 - 31 mmol/L [facility] Chloride 108 (H) 98 - 107 mmol/L [facility] Potassium 4.0 3.5 - 5.1 mmol/L [facility] Sodium 142 136 - 145 mmol/L [facility] 1 Glucose 92 70 - 110 mg/dL [facility] 1 Urea Nitrogen 15 7 - 25 mg/dL [facility] 1 Creatinine 0.90 0.7 - 1.3 mg/dL [facility] 1 Anion Gap 6 [facility] 1 Calcium 9.3 8.6 - 10.3 mg/dL [facility] 1 GFR, Estimated >60 mL/min/1.73 m2 [facility] 1 GFR, Estim, Afr-Am >60 mL/min/1.73 m2 [facility] 1 Specimen Blood Performing Organization Address [facility] Phone Number [facility] * LIVER PROFILE (04/26/2018 8:18 AM) T Protein 6.5 6.0 - 8.3 g/dL [facility] 1 Albumin 4.0 (L) 4.2 - 5.5 g/dL [facility] T Bilirubin 0.4 0.2 - 1.2 mg/dL [facility] 1 Alk Phos 60 34 - 104 U/L [facility] AST 14 13 - 39 U/L [facility] ALT 13 7 - 52 U/L [facility] D Bilirubin 0.1 0.0 - 0.2 mg/dL [facility] 1 Specimen Blood Performing Organization Address [facility] Phone Number [facility] * LIPID PROFILE (04/26/2018 8:18 AM) Cholesterol 165 mg/dL [facility] Comment: REFERENCE RANGE: Desirable: <200 mg/dL Borderline: 200-240 mg/dL High Risk: >240 mg/dL Triglyceride 96 <150 mg/dL [facility] Comment: REFERENCE RANGE: Normal: <150 mg/dL Borderline High: 150-199 mg/dL High: 200-499 mg/dL Very High: >jx=621 mg/dL HDL 55 mg/dL [facility] 1 Comment: Increased CHD risk: <40 mg/dL Decreased CHD risk: >60 mg/dL LDL 91 mg/dL [facility] 1 Comment: REFERENCE RANGE: Optimal: <100 mg/dL Near Optimal: 100-129 mg/dL Borderline High: 130-159 mg/dL High: 160-189 mg/dL Very High: >rv=850 mg/dL Specimen Blood Performing Organization Address [facility] Phone Number EUSEBIO [facility] 1 * COMPREHENSIVE METABOLIC PANEL(DBIL NOT INCLUDED) (04/14/2018 11:13 AM) Only the most recent of 2 results within the time period is included. Albumin 4.1 3.5 - 5.7 g/dL [facility] 1 Calcium 9.0 8.6 - 10.3 mg/dL [facility] 1 CO2 27 21 - 31 mmol/L [facility] 1 Chloride 107 98 - 107 mmol/L [facility] 1 Creatinine 0.70 0.60 - 1.30 mg/dL [place] [address] Glucose 86 70 - 99 mg/dL [facility] 1 Alk Phos 58 30 - 120 U/L [facility] 1 Potassium 3.8 3.5 - 5.1 mmol/L [place] [address] Sodium 141 136 - 145 mmol/L [facility] 1 ALT 11 7 - 52 U/L [facility] 1 AST 14 13 - 39 U/L [facility] 1 Urea Nitrogen 11 7 - 25 mg/dL [facility] 1 T Bilirubin 0.3 0.3 - 1.0 mg/dL [place] [address] T Protein 6.2 (L) 6.4 - 8.9 g/dL [facility] 1 GFR, Estimated >60 mL/min/1.73 m2 [facility] 1 GFR, Estim, Afr-Am >60 mL/min/1.73 m2 [facility] 1 Anion Gap 7 [facility] 1 Specimen Blood Performing Organization Address [facility] Phone Number EUSE[facility] 1 * RETIC COUNT (04/14/2018 11:13 AM) Only the most recent of 2 results within the time period is included. Retic Count 1.5 0.5 - 1.8 % [facility] 2 Immature Retic 15.9 (H) 2.3 - 13.4 % [facility] 2 Absolute Retic 0.04 0.03 - 0.10 M/uL [facility] 2 Specimen Blood Performing Organization Address [facility] Phone Number [facility] * PHOSPHORUS (04/14/2018 11:13 AM) Only the most recent of 2 results within the time period is included. Phosphorus 3.4 2.5 - 5.0 mg/dL [facility] 1 Specimen Blood Performing Organization Address [facility] Phone Number [facility] 1 * MAGNESIUM (04/14/2018 11:13 AM) Only the most recent of 2 results within the time period is included. Magnesium 2.3 1.9 - 2.7 mg/dL [facility] 1 Specimen Blood Performing Organization Address [facility] Phone Number [facility] 1 * COLONOSCOPY (01/27/2018) TEXT Patient Name JOSE HARDIN [facility] Date of 1955 Record Number [id number] Date/Time of Procedure 01/27/2018, 00:00:00 Endoscopist Cari Telles MD Assisting MD./Fellow Latricia English INDICATIONS FOR EXAMINATION:He matochezia. PROCEDURE PERFORMED: Colonoscopy Colonoscopy - diagnostic INSTRUMENTS: [id number] LIMITATIONS:None TOLERANCE: Good VISUALIZATION:Good PREP QUALITY: Good BOSTON BOWEL PREPARATION SCALE (BBPS): Right Colon: 3 Transverse Colon: 3 Left Colon: 2 Total Score: 8 WITHDRAWL TIME:00:14:20 MEDICATIONS:Fentanyl 175 mcg IVP, Benadryl 50 mg IV, Versed 7 mg IVP ASA CLASSIFICATION:III ANALGESIA:Moderate Sedation PROCEDURE TECHNIQUE: The patient was brought into the endoscopy suite and placed in the left lateral decubitus position.Heart rate and rhythm, blood oxygen saturation, and blood pressure were monitored.After adequate sedation, a digital rectal exam was performed.The colonoscope was introduced through the anus into the rectum and advanced to the cecum which was identified by the appendiceal orifice and ileocecal valve.The scope was then withdrawn and the mucosa carefully examined.With the scope in the rectum the tip was retroflexed to examine the anorectal junction.Air was aspirated from the distal colon and the scope removed. FINDINGS: External hemorrhoids. SANJ[place]NA with normal sphincter tone. Acute angulation / resistance noted in sigmoid 30- 40 cm from anal verge, scope traversed with gentle and careful manipulation. Pancolonic mild diverticulosis The cecum, ascending, hepatic flexure, transverse, splenic flexure, descending, sigmoid colon and rectum were otherwise normal. There were no evidence of polyps, bleeding lesions, or signs of ischemic colitis. Retroflexion with internal hemorrhoids ENDOSCOPIC DIAGNOSIS: Internaland external hemorrhoids. Mild diverticulosis. RECOMMENDATIONS: Repeat colonoscopy in 8-10 years, unless clinically indicated earlier for symptom evaluation. Hydration and stool softeners to avoid constipation. Repeat colonoscopy, if needed should be attempted with MAC. COMPLICATIONS: None.None ESTIMATED BLOOD LOSS:None BLOOD PRODUCTS ADMINISTERED:None GRAFT/IMPLANT:None COMMENTS: CPT CODE: 98767 Colonoscopy, flexible; diagnostic, including collection of specimen(s) by brushing or washing, when performed (separate procedur ICD CODE: K64.8 Other hemorrhoids K57.30 Diverticulosis of large intestine without perforation or abscess without bleeding I was present during the entire viewing portion of theprocedure.I personally reviewed the images and report prepared by the resident or fellow and agree with the findings. Procedure completed. This Procedure was electronically signed of on : 01/27/2018 2:11:43 PM By Cari Telles Performing Organization Address City/State/Zipcode Phone Number SMS * MRI LUMBAR SPINE W/O CONTRAST (11/22/2017 2:51 PM) Impressions Performed At IMPRESSION: SMS Severe neural foraminal stenosis at L4-L5 and L5-S1 with impingement of the left exiting L4 nerve root and impingement and flattening of the right exiting L5 nerve root. This EPIC radiology report is a preliminary resident dictation until finalized by an attending.Changes to this preliminary report may occur in an additional preliminary or finalized version. Dictated By: Ranjit Florence MD, 11/23/2017 10:59 AM I have reviewed the study and agree with the findings in this report. Signed By: Ayde Solis MD, 11/23/2017 11:36 AM Narrative Performed At EXAM: MRI LUMBAR SPINE WITHOUT CONTRAST [facility] DATE: 11/22/2017 2:51 PM INDICATION: lumbar radiculopathy. Lumbar radiculopathy COMPARISON: MRI Lumbar Spine on 06/04/2013 TECHNIQUE: Multiplanar, multisequence noncontrast MR imaging of the lumbar spine. IV contrast: None. FINDINGS: The vertebral body heights and signal intensity are preserved. The conus terminates at L1. Decreased T2 signal in the T12-L1 and L1-L2 vertebral discs is secondary to degenerative changes. Vertebral alignment is normal. L1-L2: No canal stenosis or neural foraminal narrowing. L2-L3: No canal stenosis. Mild bilateral neural foraminal narrowing. Mild intervertebral disc height loss. L3-L4: No canal stenosis. Mild bilateral neural foraminal narrowing. L4-L5: No canal stenosis. There is a severe left and mild right neural foraminal narrowing secondary to facet arthropathy with impingement of the left exiting L4 nerve root. L5-S1: No canal stenosis. There is severe right and mild left neural foraminal narrowing secondary to facet arthropathy. There is deformity/flattening of the right exiting L5 nerve. Small intervertebral disc annular fissure is unchanged. Paraspinal soft tissues: Normal. 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 Lumbar radiculopathy COMPARISON: MRI Lumbar Spine on 06/04/2013 TECHNIQUE: Multiplanar, multisequence noncontrast MR imaging of the lumbar spine. IV contrast: None. FINDINGS: The vertebral body heights and signal intensity are preserved. The conus terminates at L1. Decreased T2 signal in the T12-L1 and L1-L2 vertebral discs is secondary to degenerative changes. Vertebral alignment is normal. L1-L2: No canal stenosis or neural foraminal narrowing. L2-L3: No canal stenosis. Mild bilateral neural foraminal narrowing. Mild intervertebral disc height loss. L3-L4: No canal stenosis. Mild bilateral neural foraminal narrowing. L4-L5: No canal stenosis. There is a severe left and mild right neural foraminal narrowing secondary to facet arthropathy with impingement of the left exiting L4 nerve root. L5-S1: No canal stenosis. There is severe right and mild left neural foraminal narrowing secondary to facet arthropathy. There is deformity/flattening of the right exiting L5 nerve. Small intervertebral disc annular fissure is unchanged. Paraspinal soft tissues: Normal. IMPRESSION IMPRESSION: Severe neural foraminal stenosis at L4-L5 and L5-S1 with impingement of the left exiting L4 nerve root and impingement and flattening of the right exiting L5 nerve root. This EPIC radiology report is a preliminary resident dictation until finalized by an attending. Changes to this preliminary report may occur in an additional preliminary or finalized version. Dictated By: Ranjit Florence MD, 11/23/2017 10:59 AM I have reviewed the study and agree with the findings in this report. Signed By: Ayde Solis MD, 11/23/2017 11:36 AM Performing Organization Address City/State/Zipcode Phone Number SMS after 07/14/2017
--- OUTSIDE RECORDS SUMMARY | 2018-07-20 12:52 | XMS REPORT | Clinical Summary ---
Author Author [facility] Organization [facility] Address Unknown Phone Unavailable Care Team Providers Care Project Control Officer Name Role Phone Pascale Watson NP PCP [...] Visit 03/22/2018 Pharmacy Visit 03/22/2018 Orders Only [facility] Pascale Watson NP Lumbar radiculopathy 03/14/2018 Refill [facility] Aquilino Dudley MD Lumbar radiculopathy 02/23/2018 Pharmacy Visit 02/22/2018 Office Visit [facility] Pascale Watson NP Lumbar radiculopathy (Primary Dx); Thrombocytopenia 02/22/2018 Pharmacy Visit 02/19/2018 Pharmacy Visit 02/19/2018 Orders Only [facility] Pascale Kerns NP Lumbar radiculopathy 02/17/2018 Office Visit Neurosurgery Brian Porter MD Lumbar radiculopathy Allison Riddle NP (Primary Dx) 02/15/2018 Pharmacy Visit 02/11/2018 Refill [facility] Aquilino Dudley MD Lumbar radiculopathy 01/27/2018 [facility] Maria M Garcia NP Hematochezia (Primary Dx) Encounter Cari Telles MD 01/26/2018 Nurse Triage Wendy Marcial RN 01/22/2018 Pharmacy Visit 01/20/2018 Pharmacy Visit 01/20/2018 Telephone Magdalena White Appointment Related Questions (colonoscopy) 01/15/2018 Pharmacy Visit 01/13/2018 Pharmacy Visit 01/06/2018 Refill [facility] Aquilino Dudley MD Lumbar radiculopathy 12/28/2017 Pharmacy Visit 12/14/2017 Telephone Social Work Romario Mac RN Pre-clinic Chart Review; Transportation (Libyan Blackwood Referral) 12/11/2017 Office Visit Gastroenterology Maria M [...] Pharmacy Visit 11/17/2017 Pharmacy Visit 11/12/[address] [facility] Aquilino Minaya MD Lumbar radiculopathy 10/28/2017 Office Visit Hematology George Bronson MD Thrombocytopenia (Primary [place], Tejo N, Dx); Fellow() Anemia due to other cause, not classified 10/26/2017 Pharmacy Visit 10/15/2017 Pharmacy Visit 10/13/[address] [facility] Aquilino Minaya MD Lumbar radiculopathy 10/01/2017 Office Visit Oral Surgery LeanneAlicia cabrala A, DDS Caries (Primary Dx) Clarence Clfiton, DDS 10/01/2017 Office Visit Oral Surgery Prosper Perdomo, DDS Caries 09/16/2017 Pharmacy Visit 09/15/2017 Pharmacy Visit 09/11/2017 Pharmacy Visit 09/11/2017 Telephone Clarita Bradford LVN Medication Refill 09/10/2017 Pharmacy Visit 09/07/[address] [facility] Aquilino Minaya MD Lumbar radiculopathy 08/12/2017 Pharmacy Visit 08/11/2017 Pharmacy Visit 08/06/2017 Pharmacy Visit 08/03/[address] [facility] Aquilino Minaya MD Lumbar radiculopathy 07/29/2017 Office [...] 07/23/2018 Office Visit Neurosurgery Brian Porter MD [address] [place] [address] 4th Floor- [place] [address] [phone] 10/13/2018 Lab Appointment Lab Holly Syed MD [address] [place] [address] [address] [place] [address] [phone] 10/13/2018 Office Visit Hematology Magdalena Prather, Fellow(MD) [address] [id number] Health Maintenance Due Date Last Done Comments [...] radiculopathy Results for this CONTRAST 2:51 PM CRABBER procedure are in the results section. SAVE SMEAR/ NOT FOR PATH Routine 10/28/2017 Thrombocytopenia REVIEW 12:24 PM CRABBER RETIC COUNT Routine 10/28/2017 Thrombocytopenia Results for this 12:24 PM [facility] procedure are in the results section. PHOSPHORUS STAT 10/28/2017 Thrombocytopenia Results for this 12:24 PM [facility] procedure are in the results section. MAGNESIUM STAT 10/28/2017 Thrombocytopenia Results for this 12:24 PM [facility] procedure are in the results section. COMPREHENSIVE METABOLIC STAT 10/28/2017 Thrombocytopenia Results for this PANEL(DBIL NOT INCLUDED) 12:24 PM [facility] procedure are in the results section. CBC/DIFF STAT 10/28/2017 Thrombocytopenia Results for this 12:24 PM [facility] procedure are in the results section. CBC/DIFF STAT 07/29/2017 Thrombocytopenia Results for this 1:59 PM CDT procedure are in the results section. after 07/14/2017 Results * CBC/DIFF (07/14/2018 11:23 AM) Only the most recent of 4 results within the time period is included. WBC 3.8 (L) 4.5 - 12.0 K/uL [facility] 2 RBC 2.77 (L) 4.60 - 6.20 M/uL [facility] 2 Hemoglobin 10.6 (L) 14.0 - 18.0 g/dL [facility] 2 Hematocrit 31.4 (L) 40.0 - 54.0 % [facility] 2 MCV 113 (H) 82 - 92 fL [facility] 2 MCH 38.3 (H) 27.0 - 31.0 pg [facility] 2 MCHC 33.8 32.0 - 36.0 g/dL [facility] 2 RDW 52.7 (H) 35.1 - 43.9 fL [facility] 2 Platelet 108 (L) 150 - 400 K/uL [place] [address] Neutrophil 66.0 34.0 - 67.9 % [place] [address] Lymphocyte 23.8 21.8 - 50.0 % [facility] 2 Monocyte 7.3 5.3 - 12.0 % [facility] 2 Eosinophil 2.9 0.8 - 5.0 % [place] [address] Basophil 0.0 (L) 0.2 - 1.2 % [place] [address] Neutrophil, Abs 2.53 1.78 - 5.36 K/uL [place] [address] Lymphocyte, Abs 0.91 (L) 1.32 - 3.57 K/uL [place] [address] Monocyte, Abs 0.28 (L) 0.30 - 0.82 K/uL [place] [address] Eosinophil, Abs 0.11 0.04 - 0.54 K/uL [place] [address] Basophil, Abs 0.00 (L) 0.01 - 0.08 K/uL [place] [address] Specimen Blood Performing Organization Address City/State/Zipcode Phone Number EUSEBIO [facility] 2 * 12 LEAD EKG (06/25/2018 9:48 AM) 12 LEAD EKG FOR [facility] Test Date:2018-06-25 Pat Name: JOSE Rich artment: Room: Gender: Senior 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 Measurements Intervals [place] Rate: 62 P:66 OK: 135 QRS: 66 QRSD: 89 T:71 QT: 411 QTc:418 Interpretive Statements SINUS RHYTHM Electronically Signed On 06-25-18 14:39:30 CDT by Rajiv Hong M.D. Performing Organization Address City/State/Zipcode Phone Number [facility] * HEMOGLOBIN A1C (04/26/2018 8:19 AM) Hemoglobin A1c 5.7 4.3 - 6.1 % [facility] Est Average Gluc 116.9 mg/dL [facility] Specimen Blood Performing Organization Address [facility] Phone Number [facility] * BASIC [...] [facility]IN-[facility] 1 Specimen Blood Performing Organization Address [facility] Phone Number [facility] 1 * LIVER [...] MAIN-STATION 1 Specimen Blood Performing Organization Address [facility] Phone Number [facility] 1 * LIPID PROFILE (04/26/2018 8:18 AM) Cholesterol 165 mg/dL [facility] 1 Comment: REFERENCE RANGE: Desirable: <200 mg/dL Borderline: 200-240 mg/dL High Risk: >240 mg/dL Triglyceride 96 <150 mg/dL [facility] 1 Comment: REFERENCE RANGE: Normal: <150 mg/dL Borderline High: 150-199 mg/dL High: 200-499 mg/dL Very High: >ur=370 mg/dL HDL 55 mg/dL [facility] 1 Comment: Increased CHD risk: <40 mg/dL Decreased CHD risk: >60 mg/dL LDL 91 mg/dL [facility] 1 Comment: REFERENCE RANGE: Optimal: <100 mg/dL Near Optimal: 100-129 mg/dL Borderline High: 130-159 mg/dL High: 160-189 mg/dL Very High: >in=368 mg/dL Specimen Blood Performing Organization Address [facility] Phone Number [facility] 1 * COMPREHENSIVE METABOLIC PANEL(DBIL NOT INCLUDED) (04/14/2018 11:13 AM) Only the most recent of 2 results within the time period is included. Albumin 4.1 3.5 - 5.7 g/dL [facility] 1 Calcium 9.0 8.6 - 10.3 mg/dL [facility] 1 CO2 27 21 - 31 mmol/L [facility] 1 Chloride 107 98 - 107 mmol/L [facility] 1 Creatinine 0.70 0.60 - 1.30 mg/dL [place] [address] Glucose 86 70 - 99 mg/dL [facility] 1 Alk Phos 58 30 - 120 U/L [facility] 1 Potassium 3.8 3.5 - 5.1 mmol/L [place] [address] Sodium 141 136 - 145 mmol/L [facility] 1 ALT 11 7 - 52 U/L [facility] 1 AST 14 13 - 39 U/L [facility] 1 Urea Nitrogen 11 7 - 25 mg/dL [facility] 1 T Bilirubin 0.3 0.3 - 1.0 mg/dL [place] [address] T Protein 6.2 (L) 6.4 - 8.9 g/dL [facility] 1 GFR, Estimated >60 mL/min/1.73 m2 [facility] 1 GFR, Estim, Afr-Am >60 mL/min/1.73 m2 [facility] 1 Anion Gap 7 [facility] 1 Specimen Blood Performing Organization Address [facility] Phone Number [facility] 1 * RETIC COUNT (04/14/2018 11:13 AM) Only the most recent of 2 results within the time period is included. Retic Count 1.5 0.5 - 1.8 % [facility] 2 Immature Retic 15.9 (H) 2.3 - 13.4 % [facility] 2 Absolute Retic 0.04 0.03 - 0.10 M/uL [facility] 2 Specimen Blood Performing Organization Address [facility] Phone Number [facility] 2 * PHOSPHORUS (04/14/2018 11:13 AM) Only the most recent of 2 results within the time period is included. Phosphorus 3.4 2.5 - 5.0 mg/dL [facility] 1 Specimen Blood Performing Organization Address [facility] Phone Number [facility] 1 * MAGNESIUM (04/14/2018 11:13 AM) Only the most recent of 2 results within the time period is included. Magnesium 2.3 1.9 - 2.7 mg/dL [facility] 1 Specimen Blood Performing Organization Address [facility] Phone Number [facility] 1 * COLONOSCOPY (01/27/2018) TEXT Patient Name JOSE HARDIN [facility] Date of 1955 Record Number [id number] Date/Time of Procedure 01/27/2018, 00:00:00 Endoscopist Cari Telles MD Assisting MD./Fellow Latricia English INDICATIONS FOR EXAMINATION:He matochezia. PROCEDURE PERFORMED: Colonoscopy Colonoscopy - diagnostic INSTRUMENTS: [id number] LIMITATIONS:None TOLERANCE: Good VISUALIZATION:Good PREP QUALITY: Good [...] BLOOD PRODUCTS ADMINISTERED:None GRAFT/IMPLANT:None COMMENTS: CPT CODE: [id number] Colonoscopy, flexible; diagnostic, including collection of specimen(s) [...] At EXAM: MRI LUMBAR SPINE WITHOUT CONTRAST [facility] DATE: 11/22/2017 2:51 PM INDICATION: lumbar radiculopathy. [...] Interface, Rad/Mammog In - 11/23/2017 11:41 AM [facility]ABBER EXAM: MRI LUMBAR SPINE WITHOUT CONTRAST DATE: [...]
--- NOTE | 2018-07-20 16:11 | Discharge Summary ---
ADMISSION DIAGNOSES 1. Abdominal pain with nausea. 2. Anemia secondary to B12 deficiency and folic acid. 3. Hypokalemia. 4. Hyponatremia. 5. Pancreatitis. DISCHARGE DIAGNOSES 1. Abdominal pain with nausea. 2. Anemia secondary to B12 deficiency and folic acid. 3. Hypokalemia. 4. Hyponatremia. 5. Pancreatitis. 6. Thrombocytopenia. 7. Pancytopenia. 8. Chronic back pain. HISTORY: Patient has a history of anemia and surgical history of tonsillectomy. FAMILY HISTORY: Mother had cancer, and patient's grandmother has had a stroke. SOCIAL HISTORY: Patient admits to drinking occasional alcohol and smoking 4 to 5 cigarettes a day since he was 17 years old. HOSPITAL COURSE: A 63-year-old male complains of left upper quadrant abdominal pain that radiates to the back. The pain is described as sharp and constant. He denies vomiting but admits to nausea. Pain is improved with IV pain meds. Nothing worsens pain. Patient denies dysuria, hematuria, fever and diarrhea. On admission patient had a CT of the abdomen that showed left upper quadrant retroperitoneal fat stranding and prominent pancreas, suggests pancreatitis. His lipase remained within normal limits. GI was consulted. Patient started on Zofran, IV fluids and pain meds. Over the next few days, due to the abdominal pain patient was kept n.p.o. Slowly his diet was advanced and he tolerated it well. On day of discharge patient had breakfast and lunch, which was a GI soft diet. He tolerated well with no nausea, vomiting or pain. He will discharge home on home medicines plus Zofran p.r.n. 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 Vital signs stable, patient afebrile. Patient understands discharge instructions and agrees to plan. Dictated by: Flori Barba NP ISHAN COLLINS MD Job#: [id number] EV
== END 2018-07-20 12:58 | disposition home or self-care (01) | DRG 439 ==
LOC: ER 00:24 → ERHOLD 03:01 → IMCU 03:30 → OBSVTOIN 07-17 11:39 → MED/SURG2 07-17 12:35
PROVIDERS: ADMIT Internal Medicine; ATTEND Internal Medicine
DX: K85.20 Alcohol induced acute pancreatitis without necrosis or infection (principal); E87.1 Hypo-osmolality and hyponatremia; D61.818 Other pancytopenia; I10 Essential (primary) hypertension; Z72.0 Tobacco use; Z82.49 Family history of ischemic heart disease and other diseases of the circulatory system; R73.9 Hyperglycemia, unspecified; Z82.3 Family history of stroke; Z80.9 Family history of malignant neoplasm, unspecified; D51.3 Other dietary vitamin B12 deficiency anemia; E87.6 Hypokalemia; M54.9 Dorsalgia, unspecified; E83.42 Hypomagnesemia; E88.09 Other disorders of plasma-protein metabolism, not elsewhere classified; D69.6 Thrombocytopenia, unspecified
CPT/HCPCS: 36415; 74177; 80048; 80053; 81001; 82150; 82378; 82550; 82553; 83690; 83735; 84100; 84484; 85025; 86301; 87086; 93005; 96360; 96374; 99284; G0378; J0360; J2270; J2405; J3475; J3480; J7030; Q9967